=== PATIENT | male | born 1980 | race Caucasian/White ===

== ENCOUNTER 2022-07-18 13:51 | Emergency (ER) | payer BC, SELFPAY ==
[2022-07-18 13:55] VITALS: BP 114/78; PULSE 62; RESP 18; TEMP 36.6; O2SAT 98; BMI 25.0
--- NOTE | 2022-07-18 14:05 | CRLHL7_ITS ---
For Patients: As a result of the Century Cures Act, medical imaging exams and procedure reports are released immediately into your electronic medical record. You may view this report before your referring provider. If you have questions, please contact your health care provider. CLINICAL HISTORY: Trauma to neck. TECHNIQUE: CTA neck with contrast bolus tracking. 3D angiographic rendering using maximum intensity projection (MIP) and images permanently archived. COMPARISON: None available. FINDINGS: The great vessels are patent. The common carotid arteries are patent. The proximal ICAs are patent without signficant stenoses by NASCET criteria. The more distal cervical ICAs are patent. The origins of the vertebral arteries are patent. The cervical segments of the vertebral arteries are patent. IMPRESSION: Patent cervical arterial vasculature without hemodynamically significant luminal stenosis. No evidence of traumatic vascular injury. Please note that all CT scans at this facility use dose modulation, iterative reconstruction, and/or weight-based dosing when appropriate to reduce radiation dose to as low as reasonably achievable. Dictated by Alphonso Fuller MD @ 07/18/2022 3:51:50 PM (Electronically Signed)
--- NOTE | 2022-07-18 14:06 | ED.NECK ---
HPI - Neck Pain/Injury General Date Seen: 07/18/22 Chief Complaint: Sore Throat Stated Complaint: Baseball hit in the throat, Sunday night Time Seen by Provider: 07/18/22 13:53 Source: patient Mode of arrival: ambulatory Limitations: no limitations History of Present Illness HPI Narrative: Patient is a 41-year-old gentleman who presents here with the neck injury, he took a baseball the left side of his neck, as he is being a catcher 48 hours ago. Said since that is progressive become more sore, and slightly switch from left to right since then. Does not endorse any shortness of breath, but there is some difficulty with swallowing he has noted. He is initially taking ibuprofen common was really having a tough time swelling that today. It is not that of the pills are getting stuck gets that he notices that there is just a lot of pain with this. He has been able to swallow fluids fluids although there was some difficulty with this he has no previous history of any esophageal, tracheal issues. Does have a history of a crime cracking when he is swallowing. Presents here for help with this. 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 complaint: neck injury Place: sports venue Radiation: left lateral Severity: moderate Quality: stabbing Context: direct blow Associated symptoms: none Treatments prior to arrival: ibuprofen Related Data Home Medications Medication Instructions Recorded Confirmed bupropion HCl 200 mg tablet,12 hr tab PO 03/27/22 04/03/22 sustained-release meclizine 12.5 mg tablet 12.5 mg PO BID-QID PRN 03/27/22 04/03/22 Allergies Allergy/AdvReac Type Severity Reaction Status Date / Time No Known Drug Allergies Allergy Verified 04/03/22 09:48 Review of Systems Status of ROS: Reports: 10 or more systems reviewed and unremarkable except as noted in History and below [facility] Medical History Thyroid cyst ?E04.1 - Nontoxic single thyroid nodule (ICD-10) 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 I do not detect any subcutaneous emphysema, her niece with other swelling. Is little bit tender over the carotid area bilaterally left greater than right, any seems to have normal carotid upstrokes with absence of bruits, cranial nerves 3-12 are normal, his side motion or cervical rotation, and cervical flexion side is normal. I discussed with him we will do a CT soft tissue in a CTA of his neck to rule out any in issue with this. This is normal then we can send him home with just some Tylenol. Const: Vital Signs, click to edit/add: Vital Signs - 24 hr 07/18/22 13:55 07/18/22 16:59 Temperature 98 F Pulse Rate [Pulse Oximeter] 62 55 L Respiratory Rate 18 16 Blood Pressure [Le ft Upper Arm] 114/78 109/21 L Pulse Oximetry 98 98 Oxygen Delivery Me thod Room Air Room Air Course Course Hospital Course: Patient became a little bit hypotensive in nauseous after he was received the IV, he is much better now, we will give him some food, and he did receive a L of fluids, I reviewed the CTA did not see any evidence on the CT of any significant abnormality of the blood vessels, and flow look good his carotids. We will await the radiology read. There was a glitch in getting the CT of the soft tissue neck read today, I had to make several phone calls and finally was read several hours after it had been done. In any case, he does have a nondisplaced fracture through the thyroid cartilage. I discussed this finding with Dr. De Oliveira who is on-call for ENT. He says that this should heal without any problems. He would recommend following up with Dr. Haddad in a couple weeks to have his vocal cords visualized. There is no evidence of significant hematoma, airways patent, and discussed with him that he should be fine just using ibuprofen and/or Tylenol, ice, and vocal rest for the next couple of weeks. Vital Signs Vital signs: Initial Vital Signs Temperature 98 F 07/18/22 13:55 Temperature Source Temporal Artery Scan 07/18/22 13:55 Pulse Rate 62 07/18/22 13:55 Respiratory Rate 18 07/18/22 13:55 Blood Pressure 114/78 07/18/22 13:55 Blood Pressure Mean 90 07/18/22 13:55 Blood Pressure Position Supine 07/18/22 13:55 Pulse Oximetry 98 07/18/22 13:55 Oxygen Delivery Method Room Air 07/18/22 13:55 Vital Signs Temperature 98 F 07/18/22 13:55 Pulse Rate 62 07/18/22 13:55 Respiratory Rate 18 07/18/22 13:55 Blood Pressure 114/78 07/18/22 13:55 Pulse Oximetry 98 07/18/22 13:55 Oxygen Delivery Method Room Air 07/18/22 13:55 Temperature 98 F 07/18/22 13:55 Pulse Rate 55 L 07/18/22 16:59 Respiratory Rate 16 07/18/22 16:59 Blood Pressure 109/21 L 07/18/22 16:59 Pulse Oximetry 98 07/18/22 16:59 Oxygen Delivery Method Room Air 07/18/22 16:59 MDM - Neck Pain/Injury MDM Narrative Medical decision making narrative: During this evaluation I considered soft tissue injury of his neck, carotid dissection, fractured larynx , bleeding, hematoma, Differential Diagnosis Differential diagnosis: Likely disc disorder of cervical region, vertebral artery dissection and strain of neck muscle Medical Records Attestation: I reviewed the patient's medical records. Lab Data Attestation: I reviewed the patient's lab results. Imaging Data Soft tissue cervical,: Attestation: I have reviewed the pertinent imaging results. My impression: No evidence of abnormalities radiologic read pending Discharge Plan Discharge Clinical Impression: Closed fracture of thyroid cartilage Patient Disposition: Home, Self-Care Condition: Stable Additional Instructions: Soft diet is suggested, fluids, acetaminophen or ibuprofen both can be purchased in liquid form, if you have trouble taking the pills. Focal rest for couple of weeks. ENT follow-up is suggested in the next 1-2 weeks for visual check of your vocal cords. Call [phone] Haddad. If you have acute worsening, difficulty breathing or swallowing, return to the ER at any time. Your CT scan shows a nondisplaced thyroid cartilage fracture which should heal without any difficulty. Activity Level: Light activity Prescriptions: No Action bupropion HCl 200 mg tablet sustained-release 12 hr PO meclizine 12.5 mg tablet 12.5 mg PO BID-QID PRN Follow Up/Referrals: Marizol Martinez MD [Primary Care Provider] - Stand Alone Forms: [place] Info Instructions
[2022-07-18] MEDS: KETOROLAC 30 MG/ML inj IVP (14:27)
[2022-07-18] MEDS: 0.9 % SODIUM CHLORIDE 1000 ml 1,000 ML IV (14:28)
[2022-07-18] MEDS: ONDANSETRON 2 MG/ML inj 4 MG IVP (14:40)
[2022-07-18 16:59] VITALS: BP 109/21; PULSE 55; RESP 16; O2SAT 98
== END 2022-07-18 19:06 | disposition home or self-care (01) ==
PROVIDERS: Emergency Provider Family Medicine; PCP Family Medicine
DX: S12.8XXA Fracture of other parts of neck, initial encounter (principal); W21.07XA Struck by softball, initial encounter
CPT/HCPCS: 70491; 70498; 82962; 96374; 96375; 99284; J1885; J2405; J7030; Q9967

== ENCOUNTER 2024-01-16 13:55 | Outpatient (RCR) | payer OTHER, SELFPAY | END 2024-03-12 16:22 | disposition home or self-care (01) | PROVIDERS: PCP Family Medicine; Visit Provider Family Medicine | DX: M25.511 Pain in right shoulder (principal); M54.50 Low back pain, unspecified; M75.20 Bicipital tendinitis, unspecified shoulder; R53.1 Weakness; Z74.09 Other reduced mobility; Z51.89 Encounter for other specified aftercare | CPT/HCPCS: 97110; 97162 ==